=== PATIENT | male | born 1975 | race Caucasian/White ===

== ENCOUNTER → 2024-09-14 | Outpatient (CLI) | payer OTHER ==
[2024-09-14 15:34] LABS: Bilirubin,Urine Negative (Negative); Blood,Urine Negative (Negative); Color,Urine Yellow (Yellow); Ketones,Urine Trace (Negative); Nitrite,Urine Negative (Negative); PH, Urine 5.5; Specific Gravity,Urine 1.028 (1.001-1.030); Urobilinogen,Urine 1.0 E.U./DL
[2024-09-14 15:41] LABS: Bacteria,Urine None Seen (None Seen)
[2024-09-14 16:07] LABS: HCT 50.3 % (39.6-50.0); HGB 16.5 g/dL (13.0-17.0); MCH 29.7 pg (27.0-32.0); MCHC 32.8 g/dL (32.0-37.0); MCV 90.6 FL (80.0-97.0); NRBC Per 100 WBC 0 X 10*3/uL (0.00-0.01); Platelet Count 247 X 10*3/uL (140-440); RBC 5.55 X 10*6/uL (4.40-5.60); RDW 12.9 % (11.5-14.5); WBC 6.52 X 10*3/uL (4.50-10.00)
[2024-09-14 16:16] LABS: ALT 18 U/L (10-49); AST 18 U/L (14-35); Albumin 4.6 g/dL (3.8-4.9); Albumin/Globulin Ratio 2.19 Ratio (1.60-3.17); Alkaline Phosphatase 60 U/L (41-126); Anion Gap 10.30 mmol/L (4.00-12.00); BUN/Creat Ratio 16.55 Ratio (12.00-20.00); Blood Urea Nitrogen 18.2 mg/dL (9.0-27.0); Calcium 9.7 mg/dL (8.7-10.3); Carbon Dioxide 25.7 mmol/L (21.6-31.8); Chloride 106 mmol/L (96-109); Globulin 2.1 g/dL (1.6-3.3); Glucose 99 mg/dL (70-110); Potassium 5.0 mmol/L (3.5-5.5); Prostate Specific Antigen 1.30 ng/mL (0.000-2.500); Sodium 142 mmol/L (135-145); Total Protein 6.7 g/dL (6.2-8.2)
== END | disposition home or self-care (01) ==
LOC: LABWHC1 08:51
PROVIDERS: ATTEND Family Medicine
DX: Z00.00 Encounter for general adult medical examination without abnormal findings (principal)
CPT/HCPCS: 36415; 80053; 81001; 82306; 83036; 84153; 84443; 85027